=== PATIENT | female | born 1950 | race Caucasian/White ===

== ENCOUNTER → 2017-02-24 | Outpatient (CLI) | payer OTHER ==
[~2017-02-24] MED LIST: ANTI-DIARRHEA2 MG PO; BENADRYL25 MG PO; CARISOPRODOL 3350 MG PO; DOXYCYCLINE 10100 M1 PO; FINACEA50 GM TOP; TYLENOL COLD C1 EAC1 PO
== END ==
LOC: RAD 09:38
DX: S92.352A Displaced fracture of fifth metatarsal bone, left foot, initial encounter for closed fracture (principal); M25.572 Pain in left ankle and joints of left foot; X58.XXXA Exposure to other specified factors, initial encounter; Y93.89 Activity, other specified; Y92.89 Other specified places as the place of occurrence of the external cause; Y99.8 Other external cause status